=== PATIENT | male | born 1940 | race Caucasian/White ===

== ENCOUNTER 2017-08-06 13:11 | Inpatient (IN) | payer MEDICARE, OTHER ==
[2017-08-06] MEDS ORDERED: ASPIRIN 81 MG TABLET, CHEWABLE PO ONE (13:30)
--- NOTE | 2017-08-06 13:35 | ER Document Report ---
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 Pace Rate set at 130, then 115. No hx DVT or PE. Takes Eliquis BID. PCP:Jone who does not admit after 1200 on wednesday. TRAVEL OUTSIDE OF THE [place] IN LAST 30 DAYS: No - Related Data Allergies/Adverse Reactions: No Known Drug Allergies Allergy (Verified 08/06/17 13:25) Past Medical History - General Information source: Patient - Social History Smoking Status: Former Smoker Frequency of alcohol use: None Drug Abuse: None Lives with: Spouse/Significant other Family History: Reviewed & Not Pertinent - Past Medical History Cardiac Medical History: Reports: Hx Atrial Fibrillation, Hx Hypercholesterolemia, Hx Hypertension Past Surgical History: Reports: Hx Pacemaker - dual pacer set at 115 - Immunizations Hx Diphtheria, Pertussis, Tetanus Vaccination: No Review of Systems - Review of Systems Constitutional: No symptoms reported EENT: No symptoms reported Cardiovascular: See HPI Respiratory: See HPI Gastrointestinal: No symptoms reported Genitourinary: No symptoms reported Male Genitourinary: No symptoms reported Musculoskeletal: No symptoms reported Skin: No symptoms reported Hematologic/Lymphatic: No symptoms reported Neurological/Psychological: No symptoms reported Physical Exam - Vital signs Vitals: Temp Pulse Resp BP Pulse Ox 97.6 F 100 17 125/89 H 100 08/06/17 13:25 08/06/17 13:25 08/06/17 13:25 08/06/17 13:25 08/06/17 13:25 Interpretation: Normal - General General appearance: Appears well, Alert In distress: None - HEENT Head: Normocephalic, Atraumatic Eyes: Normal Conjunctiva: Normal Pupils: PERRL Neck: Supple. No: Lymphadenopathy - Respiratory Respiratory status: No respiratory distress Chest status: Nontender Breath sounds: Normal Chest palpation: Normal - Cardiovascular Rhythm: Tachycardia - ventricular paced above 100 Heart sounds: Normal auscultation Murmur: No - Abdominal Inspection: Normal Distension: No distension Bowel sounds: Normal Tenderness: Nontender. No: Tender Organomegaly: No organomegaly - Back Back: Normal, Nontender. No: CVA tenderness - Extremities General upper extremity: Normal inspection, Nontender, Normal color, Normal ROM , Normal temperature General lower extremity: Edema - bilateral below the knee, Normal color, Normal ROM, Normal temperature, Normal weight bearing. No: Romeo's sign - Neurological Neuro grossly intact: Yes Cognition: Normal Orientation: AAOx4 Jeanie Coma Scale Eye Opening: Spontaneous [place] Coma Scale Verbal: Oriented [place] Coma Scale Motor: Obeys Commands [place] Coma Scale Total: 15 Speech: Normal Motor strength normal: LUE, RUE, LLE, RLE Sensory: Normal - Psychological Associated symptoms: Normal affect, Normal mood - Skin Skin Temperature: Warm Skin Moisture: Dry Skin Color: Normal Course - Re-evaluation Re-evalutation: 08/06/17 17:42 1st troponin negative, d dime 0.54, consult dr. matos get the CTA, NTG took pain from 4/5 to 0. Will put on NTG topical 0.5 mg 08/06/17 17:44 08/06/17 18:44 Patient is still pain-free he has a little bit of a cough when he inhales which she has had for couple weeks. His CTA is negative for PE but shows small bilateral pleural effusions and a small pericardial effusion. Dr. elsie palma feels the patient can stay here for admission for chest pain which is the patient prefers to stay at [place] if he can. I will call the hospitalist. for admission, the night hosptialist has to do the admission per Dr. Gooden at 7: 15 pm 08/06/17 18:47 08/06/17 19:20 Dr. Harvey the night hospitalist will admit the patient to telemetry observation for chest pain. - Vital Signs Vital signs: Temp Pulse Resp BP Pulse Ox 97.6 F 100 25 H 108/76 95 08/06/17 13:25 08/06/17 13:25 08/06/17 17:32 08/06/17 17:32 08/06/17 17:32 - Laboratory Result Diagrams: 08/06/17 14:17 08/06/17 14:17 Laboratory results interpreted by me: 08/06/17 08/06/17 08/06/17 14:17 14:17 15:25 WBC 19.1 H RDW 14.5 H Seg Neuts % (Manual) 90 H Band Neutrophils % 1 L Lymphocytes % (Manual) 1 L Abs Neuts (Manual) 17.4 H Abs Lymphs (Manual) 0.4 L D-Dimer 0.54 H BUN 35 H Est GFR (Non-Af Amer) 56 L Glucose 132 H Direct Bilirubin 0.5 H Creatine Kinase 35 L Discharge - Discharge Clinical Impression: CHEST PAIN, small bilateral pleural effusion, mild pericardial effusion Condition: Stable Disposition: ADMITTED OBSERVATION Admitting Provider: Hospitalist Unit Admitted: Telemetry Referrals: JOSE SESAY MD [Primary Care Provider] - Follow up as needed
--- NOTE | 2017-08-06 14:11 | RADIOLOGY REPORT (SQ) ---
EXAM DESCRIPTION: CHEST SINGLE VIEW COMPLETED DATE/TIME: 08/06/2017 2:02 pm REASON FOR STUDY: cp COMPARISON: Two-view chest 10/13/2012 EXAM PARAMETERS: NUMBER OF VIEWS: One view. TECHNIQUE: Single frontal radiographic view of the chest acquired. RADIATION DOSE: NA LIMITATIONS: None. FINDINGS: LUNGS AND PLEURA: Trace left pleural effusion. Mild left basilar airspace disease atelectasis versus pneumonia. No right pleural effusion. No right-sided airspace disease. No right or left pneumothorax. MEDIASTINUM AND HILAR STRUCTURES: No masses. Contour normal. HEART AND VASCULAR STRUCTURES: Stable moderate cardiomegaly BONES: No acute findings. HARDWARE: Since prior films, patient has had a left-sided dual lead pacemaker placed OTHER: No other significant finding. IMPRESSION: Trace left pleural effusion with left basilar airspace disease atelectasis versus pneumo alan. Stable cardiomegaly. Dual lead pacemaker TECHNICAL DOCUMENTATION: JOB ID: [id number] [employer] [facility] [employer]- All Rights Reserved
[2017-08-06 14:28] LABS: HEMATOCRIT 46.8 % (37.9-51.0); HGB HCT DIFFERENCE 1.2; MEAN CORPUSCULAR HEMOGLOBIN 31.8 pg (27.0-33.4); MEAN CORPUSCULAR HGB CONC 34.3 g/dL (32.0-36.0); MEAN CORPUSCULAR VOLUME 93 fl (80-97); RED BLOOD COUNT 5.04 10^6/uL (4.35-5.55); RED CELL DISTRIBUTION WIDTH 14.5 % (11.5-14.0); WHITE BLOOD COUNT 19.1 10^3/uL (4.0-10.5)
[2017-08-06 14:58] LABS: ALANINE AMINOTRANSFERASE 59 U/L (21-72); ALKALINE PHOSPHATASE 117 U/L (38-126); ANION GAP 16 (5-19); ASPARTATE AMINO TRANSFERASE 53 U/L (17-59); BILIRUBIN,DIRECT 0.5 mg/dL (0.0-0.4); BILIRUBIN,TOTAL 1.1 mg/dL (0.2-1.3); BLOOD UREA NITROGEN 35 mg/dL (7-20); CALCIUM 9.3 mg/dL (8.4-10.2); CARBON DIOXIDE 27 mmol/L (22-30); CHLORIDE 98 mmol/L (98-107); CREATINE KINASE 35 U/L (55-170); CREATININE RESULT 1.25 mg/dL (0.52-1.25); GLUCOSE 132 mg/dL (75-110); POTASSIUM 4.2 mmol/L (3.6-5.0); SODIUM 141.2 mmol/L (137-145); TOTAL PROTEIN 6.8 g/dL (6.3-8.2)
[2017-08-06 15:07] LABS: BAND NEUTROPHILS % (MANUAL) 1 % (3-5); BASOPHILS % (MANUAL) 0 % (0-2); EOSINOPHILS % (MANUAL) 0 % (0-6); LYMPHOCYTES % (MANUAL) 1 % (13-45); POLYCHROMASIA SLIGHT; TOTAL CELLS COUNTED 100; TOXIC GRANULATION SLIGHT; TOXIC VACUOLATION PRESENT
[2017-08-06 15:10] LABS: CREATINE KINASE MB 1.24 ng/mL (<4.55)
[2017-08-06 15:12] LABS: TROPONIN I < 0.012 ng/mL
[2017-08-06] MEDS ORDERED: NITROGLYCERIN 0.4 MG/TAB 25 TAB/BOTTLE SL ONE (16:09)
[2017-08-06] MEDS ORDERED: NORMAL SALINE 1000 ML 500 ML IV ONE (16:57)
[2017-08-06] MEDS ORDERED: NITROGLYCERIN 0.4 MG/TAB 25 TAB/BOTTLE SL PRN (16:58)
[2017-08-06] MEDS ORDERED: NITROGLYCERIN 2% OINTMENT 1 GM PACKET TP ONE (17:43)
--- NOTE | 2017-08-06 18:11 | RADIOLOGY REPORT (SQ) ---
EXAM DESCRIPTION: CTA CHEST COMPLETED DATE/TIME: 08/06/2017 5:54 pm REASON FOR STUDY: chest pain sob COMPARISON: None. TECHNIQUE: CT scan of the chest performed using helical scanning technique with dynamic intravenous contrast injection. Images reviewed with lung, soft tissue and bone windows. Reconstructed coronal and sagittal MPR images reviewed. Additional 3 dimensional post-processing performed to develop Maximal Intensity Projection images (CO P). All images stored on PACS. All CT scanners at this facility use dose modulation, iterative reconstruction, and/or weight based d osing when appropriate to reduce radiation dose to as low as reasonably achievable (ALARA). [facility]: Dose Right [facility]: CareDose [facility]: Dose Right [facility]: Teradose 4D [facility]: InStitchu CONTRAST TYPE AND DOSE: contrast/concentration: Isovue 370.00 mg/ml; Total Contrast Delivered: 72.0 ml; Total Saline Delivered: 45.0 ml Contrast bolus optimized for the pulmonary arteries. Not diagnostic for the aorta. RENAL FUNCTION: Creatinine measures 1.25 RADIATION DOSE: Up-to-date CT equipment and radiation dose reduction techniques were employed. CTDIv ol: 16.5 - 17.8 mGy. DLP: 642 mGy-cm. . LIMITATIONS: None. FINDINGS: LUNGS AND PLEURA: Small bilateral pleural effusions with associated compressive atelectasi s. No consolidation or pneumothorax. AORTA AND GREAT VESSELS: No aneurysm. Contrast bolus not optimized for the aorta. HEART: Multichamber cardiomegaly. Trace pericardial effusion. Moderate to marked coronary artery chalino cifications. PULMONARY ARTERIES: No emboli visualized in the main pulmonary arteries or the segmental branches. HILAR AND MEDIASTINAL STRUCTURES: No identified masses or abnormal nodes. HARDWARE: None in the chest. UPPER ABDOMEN: No significant findings. Limited exam. THYROID AND OTHER SOFT TISSUES: No masses. No adenopathy. BONES: No acute or significant finding. 3D MIPS: Confirm above findings. OTHER: No other significant finding. IMPRESSION: NO PULMONARY EMBOLI. SMALL BILATERAL PLEURAL EFFUSIONS AND TRACE PERICARDIAL EFFUSION. CORONARY ARTERY DISEASE. COMMENT: Quality ID # [id number]: Final reports with documentation of one or more dose reduction techniques (e.g., Automated exposure control, adjustment of the mA and/or kV according to patient size, use of iterative reconstruction technique) TECHNICAL DOCUMENTATION: JOB ID: [id number]- All Rights Reserved
[2017-08-06] MEDS ORDERED: MAGNESIUM HYDROXIDE SUSP 30 ML UDCUP PO PRN (20:20)
[2017-08-06] MEDS ORDERED: ACETAMINOPHEN 325 MG TABLET PO PRN (20:20)
[2017-08-06 21:06] LABS: APPEARANCE,URINE CLEAR; BILIRUBIN,URINE NEGATIVE (NEGATIVE); GLUCOSE, URINE NEGATIVE (NEGATIVE); KETONES,URINE NEGATIVE (NEGATIVE); LEUKOCYTE ESTERASE,URINE MODERATE (NEGATIVE); NITRITE,URINE NEGATIVE (NEGATIVE); PROTEIN,URINE NEGATIVE (NEGATIVE); UROBILINOGEN,URINE NEGATIVE mg/dL (<2.0)
[2017-08-06 21:07] LABS: URINE SPECIFIC GRAVITY > 1.060
[2017-08-06] MEDS ORDERED: FUROSEMIDE INJ/PF 20 MG/2 ML SDV IV ONE (21:15)
--- NOTE | 2017-08-06 21:31 | PDOC H&P ---
History of Present Illness Admission Date/PCP: 08/06/17 19:43 JOSE SESAY, History of Present Illness: AUSTYN WEAVER is a 77 year old male with past medical history of atrial fibrillation status post pacemaker placement, hypertension, hyperlipidemia who presents with chest pain. Patient reports that he was constipated and when he began bearing down he began having chest pain. He described this as an aching substernal pain that did not radiate. He reports that it was improved with nitroglycerin. He denies any exacerbating factors. He denies any associated nausea, vomiting, or diaphoresis. Patient reports that over the last 3-4 days he has noticed a dry cough, shortness of breath, and increased dyspnea on exertion. He also reports significant fatigue. He does note that his lower extremities have been swollen and he does admit to drinking quite a bit of water. He does also report 2 cramps in the backs of his legs. Patient underwent a CTA in the emergency department which revealed atelectasis but no pulmonary embolus as well as marketed coronary artery calcification. Patient is noted also to have bilateral pleural effusions and a pericardial effusion. He is referred to the hospitalist service for chest pain. Patient is being admitted for congestive heart failure exacerbation. Past Medical History Cardiac Medical History: Reports: Atrial Fibrillation, Hyperlipidema, Hypertension Denies: Myocardial Infarction Pulmonary Medical History: Denies: Asthma, Tuberculosis Neurological Medical History: Denies: Seizures GI Medical History: Denies: Hepatitis, Hiatal Hernia Hematology: Denies: Anemia, Sickle Cell Disease Past Surgical History Past Surgical History: Reports: Pacemaker - dual pacer set at 115, Other - bladder surgery Social History Lives with: Spouse/Significant other Smoking Status: Former Smoker Frequency of Alcohol Use: Social Hx Recreational Drug Use: No Hx Prescription Drug Abuse: No - Advance Directive Resuscitation Status: Full Code Surrogate healthcare decision maker:: Joanne Weaver, Family History Family History: Malignancy, Other - Dementia Parental Family History Reviewed: Yes Children Family History Reviewed: Yes Sibling(s) Family History Reviewed.: Yes Medication/Allergy Home Medications: Apixaban [Eliquis 5 mg Tablet] 5 mg PO Q12 08/06/17 Flecainide Acetate 150 mg PO Q12 08/06/17 Lisinopril [Prinivil 10 mg Tablet] 10 mg PO DAILY 08/06/17 Metoprolol Succinate [Toprol Xl 50 mg Tab.sr] 75 mg PO DAILY 08/06/17 Allergies/Adverse Reactions: No Known Drug Allergies Allergy (Verified 08/06/17 13:25) Review of Systems Constitutional: PRESENT: fatigue. ABSENT: chills, fever(s), headache(s), weight gain, weight loss Eyes: ABSENT: visual disturbances Ears: ABSENT: hearing changes Cardiovascular: PRESENT: chest pain, dyspnea on exertion, edema. ABSENT: orthropnea, palpitations Respiratory: PRESENT: cough, dyspnea. ABSENT: hemoptysis, sputum Gastrointestinal: PRESENT: bloating, constipation. ABSENT: abdominal pain, diarrhea, hematemesis, hematochezia, melena, nausea, vomiting Genitourinary: ABSENT: dysuria, hematuria Musculoskeletal: ABSENT: joint swelling Integumentary: ABSENT: rash, wounds Neurological: ABSENT: abnormal gait, abnormal speech, confusion, dizziness, focal weakness, syncope Psychiatric: ABSENT: anxiety, depression, homidical ideation, suicidal ideation Endocrine: ABSENT: cold intolerance, heat intolerance, polydipsia, polyuria Hematologic/Lymphatic: ABSENT: easy bleeding, easy bruising Physical Exam Vital Signs: Temp Pulse Resp BP Pulse Ox 97.6 F 100 20 113/80 96 08/06/17 13:25 08/06/17 13:25 08/06/17 20:00 08/06/17 19:01 08/06/17 20:00 General appearance: PRESENT: no acute distress, well-developed, well-nourished Head exam: PRESENT: atraumatic, normocephalic Eye exam: PRESENT: conjunctiva pink, EOMI, periorbital swelling - Mild bilateral periorbital swelling, PERRLA. ABSENT: scleral icterus Ear exam: PRESENT: normal external ear exam Mouth exam: PRESENT: moist, tongue midline Neck exam: PRESENT: JVD. ABSENT: lymphadenopathy, thyromegaly, tracheal deviation Respiratory exam: PRESENT: rales, symmetrical, tachypnea. ABSENT: accessory muscle use, crackles, prolonged expiratory phas, retraction, rhonchi, unlabored , wheezes Cardiovascular exam: PRESENT: +S1, +S2, systolic murmur, other - Ventricularly paced. ABSENT: diastolic murmur, gallop, rubs Pulses: PRESENT: normal dorsalis pedis pul Vascular exam: PRESENT: normal capillary refill GI/Abdominal exam: PRESENT: distended - Mildly, hypoactive bowel sounds, normal bowel sounds, soft. ABSENT: guarding, mass, Pollack's sign, organolmegaly, rebound, rigid, tenderness Rectal exam: PRESENT: deferred Extremities exam: PRESENT: full ROM. ABSENT: calf tenderness, clubbing, pedal edema Neurological exam: PRESENT: alert, awake, oriented to person, oriented to place , oriented to time, oriented to situation, CN II-XII grossly intact. ABSENT: motor sensory deficit Psychiatric exam: PRESENT: appropriate affect, normal mood. ABSENT: homicidal ideation, suicidal ideation Skin exam: PRESENT: dry, intact, warm. ABSENT: cyanosis, rash Results Laboratory Results: 08/06/17 08/06/17 08/06/17 14:17 14:17 14:17 WBC 19.1 H Hgb 16.0 Hct 46.8 Plt Count 238 Seg Neuts % (Manual) 90 H D-Dimer Potassium 4.2 BUN 35 H Creatinine 1.25 Glucose 132 H Magnesium Direct Bilirubin 0.5 H AST 53 ALT 59 Alkaline Phosphatase 117 Creatine Kinase 35 L CK-MB (CK-2) 1.24 Troponin I < 0.012 Total Protein 6.8 Albumin 4.0 08/06/17 08/06/17 14:17 15:25 WBC Hgb Hct Plt Count Seg Neuts % (Manual) D-Dimer 0.54 H Potassium BUN Creatinine Glucose Magnesium 1.8 Direct Bilirubin AST ALT Alkaline Phosphatase Creatine Kinase CK-MB (CK-2) Troponin I Total Protein Albumin Impressions: Chest X-Ray 08/06/17 13:30 IMPRESSION: Trace left pleural effusion with left basilar airspace disease atelectasis versus pneumonia. Stable cardiomegaly. Dual lead pacemaker Chest/Abdomen CTA 08/06/17 16:57 IMPRESSION: NO PULMONARY EMBOLI. SMALL BILATERAL PLEURAL EFFUSIONS AND TRACE PERICARDIAL EFFUSION. CORONARY ARTERY DISEASE. Assessment & Plan - Diagnosis (1) Leukocytosis Qualifiers: Leukocytosis type: unspecified Qualified Code(s): D72.829 - Elevated white blood cell count, unspecified Is this a current diagnosis for this admission?: Yes Plan: Check UA, blood cultures, rapid influenza. (2) Acute congestive heart failure Qualifiers: Congestive heart failure type: unspecified congestive heart failure type Qualified Code(s): I50.9 - Heart failure, unspecified Is this a current diagnosis for this admission?: Yes Plan: Will obtain STAT ECHO. Suspect diastolic heart failure. Place patient on metoprolol, lisinopril, and lasix. Have considered restrictive pericarditis/tamponade in light of patient's apparent intravascular dehydration, but physical symptoms of volume overload. (3) Pericardial effusion Is this a current diagnosis for this admission?: Yes Plan: Concern for constrictive pericarditis or tamponade. Have obtained STAT echo and consulted cardiology. (4) A-fib Qualifiers: Atrial fibrillation type: chronic Qualified Code(s): I48.2 - Chronic atrial fibrillation Is this a current diagnosis for this admission?: Yes Plan: Patient had pacemaker placed recently for this. Continue flecanide, metoprolol, and eliquis. Monitor on telemetry for arrhythmia (5) HTN (hypertension) Qualifiers: Hypertension type: essential hypertension Qualified Code(s): I10 - Essential (primary) hypertension Is this a current diagnosis for this admission?: Yes (6) HLD (hyperlipidemia) Qualifiers: Hyperlipidemia type: unspecified Qualified Code(s): E78.5 - Hyperlipidemia , unspecified Is this a current diagnosis for this admission?: Yes Plan: Check FLP. Continue simvastatin and CoQ 10 CK normal (7) Constipation Qualifiers: Constipation type: unspecified constipation type Qualified Code(s): K59.00 - Constipation, unspecified Is this a current diagnosis for this admission?: Yes Plan: Give senna and colace and dulcolax (8) Coronary artery disease Qualifiers: Coronary Disease-Associated Artery/Lesion type: squaxin artery [place] vs. transplanted heart: squaxin heart Associated angina: with stable angina Qualified Code(s): I25.118 - Atherosclerotic heart disease of squaxin coronary artery with other forms of angina pectoris Is this a current diagnosis for this admission?: Yes Plan: Patient has marked coronary artery calcification on CT. - Time Time Spent with patient: Total time spent with patient including patient education, physical examination , discussion with consultants, and formulation of plan was 65 minutes. Time Spent: 50 to 70 Minutes Medications reviewed and adjusted accordingly: Yes Anticipated discharge: Home Within: Other - Upon improvement of symptomatology - Inpatient Certification Based on my medical assessment, after consideration of the patient's comorbidities, presenting symptoms, or acuity I expect that the services needed warrant INPATIENT care.: Yes I certify that my determination is in accordance with my understanding of Medicare's requirements for reasonable and necessary INPATIENT services [42 CFR 412.3e].: Yes Medical Necessity: Need For Continuous Telemetry Monitoring, Risk of Complication if Not Cared For in Hospital, Risk of Diagnosis Which Will Require Inpatient Eval/Care/Monitoring Post Hospital Care: D/C Track Coach Documentation
[2017-08-06] MEDS ORDERED: FLECAINIDE ACETATE 150 MG PO SCH (22:00)
[2017-08-06] MEDS ORDERED: METOPROLOL SUCCINATE 25 MG TAB.SR.24H PO SCH ×2 (22:00)
--- NOTE | 2017-08-06 22:40 | EKG REPORT ---
SEVERITY:- ABNORMAL ECG - VENTRICULAR-PACED RHYTHM : Confirmed by: Eloy Garza 06-Aug-2017 22:40:30
[2017-08-06] MEDS ORDERED: BISACODYL 5 MG TABEC PO ONE (22:43)
[2017-08-06] MEDS: LISINOPRIL 5 MG TABLET PO SCH (22:46)
[2017-08-06] MEDS: SENNOSIDES/DOCUSATE 8.6-50 MG 1 EACH TABLET PO SCH (22:46)
[2017-08-06] MEDS: METOPROLOL SUCCINATE 50 MG TAB.SR.24H PO SCH (22:47)
[2017-08-06 22:51] LABS: CREATINE KINASE MB 0.95 ng/mL (<4.55); TROPONIN I 0.013 ng/mL
[2017-08-06] MEDS: NITROGLYCERIN 2% OINTMENT 1 GM PACKET TP SCH (23:25)
[2017-08-07 03:55] LABS: ABSOLUTE LYMPHOCYTES (AUTO) 1.2 10^3/uL (0.5-4.7); ABSOLUTE MONOCYTES (AUTO) 2.2 10^3/uL (0.1-1.4); ABSOLUTE NEUT (AUTO) 10.5 10^3/uL (1.7-8.2); BASOPHILS % (AUTO) 0.3 % (0-2); EOSINOPHILS % (AUTO) 0.1 % (0-6); HEMATOCRIT 40.8 % (37.9-51.0); HGB HCT DIFFERENCE 0.9; LYMPHOCYTES % (AUTO) 8.7 % (13-45); MEAN CORPUSCULAR HEMOGLOBIN 31.8 pg (27.0-33.4); MEAN CORPUSCULAR VOLUME 94 fl (80-97); MONOCYTES % (AUTO) 15.7 % (3-13); RED BLOOD COUNT 4.37 10^6/uL (4.35-5.55); RED CELL DISTRIBUTION WIDTH 14.4 % (11.5-14.0); SEGMENTED NEUTROPHILS % (AUTO) 75.2 % (42-78); WHITE BLOOD COUNT 13.9 10^3/uL (4.0-10.5)
[2017-08-07 04:03] LABS: ANION GAP 10 (5-19); BLOOD UREA NITROGEN 33 mg/dL (7-20); CALCIUM 9.1 mg/dL (8.4-10.2); CARBON DIOXIDE 30 mmol/L (22-30); CHLORIDE 98 mmol/L (98-107); CHOLESTEROL 76.43 mg/dL (0-200); CREATININE RESULT 1.22 mg/dL (0.52-1.25); Direct HDL 33 mg/dL (>40); GLUCOSE 118 mg/dL (75-110); SODIUM 138.4 mmol/L (137-145); TRIGLYCERIDES 67 mg/dL (<150)
[2017-08-07 04:12] LABS: HEMOGLOBIN 13.9 g/dL (13.5-17.0)
[2017-08-07 04:20] LABS: DIRECT LDL 39 mg/dL (<100)
[2017-08-07 04:34] LABS: CREATINE KINASE MB 0.66 ng/mL (<4.55); TROPONIN I 0.013 ng/mL
[2017-08-07] MEDS: NITROGLYCERIN 2% OINTMENT 1 GM PACKET TP SCH ×4 (06:52→23:52)
--- NOTE | 2017-08-07 08:59 | XCELERA REPORT ---
[address] [address] Transthoracic Echocardiogram Report Name: AUSTYN WEAVER Age: 77 yrs Gender: Male : 1940 Patient Status: Inpatient Patient Location: [address] [place] [address] Study Date: 08/06/2017 10:58 PM Height: 69 in Weight: 180 lb BSA: 2.0 m2 Procedure: A complete two-dimensional transthoracic echocardiogram was performed (2D, M-mode, spectral and color flow Doppler). The study was technically difficult with many images being suboptimal in quality. Reason For Study: pericardial effusion, acute chf Ordering Physician: CLINTON ODELL Performed By: Lizz Roberson Interpretation Summary LV EF is 35% Left ventricular systolic function is moderate to severely reduced. There is mild concentric left ventricular hypertrophy. The left ventricle is grossly normal size. Doppler measurements suggest pseudonormalized left ventricular relaxation, which is associated with grade II/IV or mild to moderate diastolic dysfunction There is apical wall akinesis There is mid to distal septal wall akinesis The right ventricular systolic function is mild to moderately reduced. The left atrium is moderately dilated. The right atrium is normal in size There is a mild amount of mitral regurgitation There is no mitral valve stenosis. No aortic regurgitation is present. There is no aortic valve stenosis There is a trace to mild amount of tricuspid regurgitation There is mild pulmonary hypertension by echo Right ventricular systolic pressure is estimated to be elevated at 30- 40mmHg. The aortic root is not well visualized. The inferior vena cava appeared normal and decreased < 50% with respiration (RAP 10-15 mmHg) Minimal pericardial effusion. MMode/2D Measurements & Calculations RVDd: 3.1 cm LVIDd: 5.0 cm FS: 11.2 % Ao root diam: 3.4 cm IVSd: 1.1 cm LVIDs: 4.4 cm EDV(Teich): 118.6 ml LVPWd: 1.1 cm ESV(Teich): 89.8 ml Ao root area: 8.9 cm2 EF(Teich): 24.2 % LA dimension: 3.9 cm Doppler Measurements & Calculations MV E max zaira: MV P1/2t max zaira: Ao V2 max: LV V1 max P.5 cm/sec 57.9 cm/sec 66.4 cm/sec 1.2 mmHg MV A max zaira: MV P1/2t: 61.9 msec Ao max PG: LV V1 max: 38.1 cm/sec 1.8 mmHg 55.9 cm/sec MV E/A: 1.6 MVA(P1/2t): 3.6 cm2 MV dec slope: 273.9 cm/sec2 MV dec time: 0.19 sec PA V2 max: TR max zaira: 39.5 cm/sec 256.5 cm/sec PA max PG: TR max P.3 mmHg 0.62 mmHg Left Ventricle The left ventricle is grossly normal size. There is mild concentric left ventricular hypertrophy. Left ventricular systolic function is moderate to severely reduced. LV EF is 35%. Doppler measurements suggest pseudonormalized left ventricular relaxation, which is associated with grade II/IV or mild to moderate diastolic dysfunction. There is apical wall akinesis. There is mid to distal septal wall akinesis. Right Ventricle The right ventricle is grossly normal size. There is normal right ventricular wall thickness. The right ventricular systolic function is mild to moderately reduced. Atria The right atrium is normal in size. The left atrium is moderately dilated. Interarterial septum not well visualized and not well dopplered. Cannot comment on ASD/PFO presence. Mitral Valve The mitral valve leaflets are sclerotic and show some degree of functional abnormality. There is no mitral valve stenosis. There is a mild amount of mitral regurgitation. Aortic Valve The aortic valve is not well visualized secondary to technical limitations. There is no aortic valve stenosis. No aortic regurgitation is present. Tricuspid Valve The tricuspid valve is not well visualized secondary to technical limitations. There is no tricuspid stenosis. There is a trace to mild amount of tricuspid regurgitation. There is mild pulmonary hypertension by echo. Right ventricular systolic pressure is estimated to be elevated at 30-40mmHg. Pulmonic Valve The pulmonic valve is not well visualized. Great Vessels The aortic root is not well visualized. The inferior vena cava appeared normal and decreased < 50% with respiration (RAP 10-15 mmHg). Effusions Minimal pericardial effusion. : CLINTON ODELL > Eloy Garza
[2017-08-07] MEDS ORDERED: BESIFLOXACIN HCL 0.6% OPH SUSP 5 ML BOTTLE OD SCH (10:00)
[2017-08-07] MEDS ORDERED: (PENDING PHARMACY ID) (Nepafenac [Ilevro] 1 DROP) OD SCH (10:00)
[2017-08-07] MEDS ORDERED: FUROSEMIDE INJ/PF 20 MG/2 ML SDV IV SCH (10:00)
[2017-08-07] MEDS ORDERED: (PENDING PHARMACY ID) (Difluprednate [Durezol] 1 DROP) OD SCH (10:00)
[2017-08-07] MEDS ORDERED: FLECAINIDE ACETATE 150 MG PO SCH (10:00)
[2017-08-07] MEDS ORDERED: FLECAINIDE ACETATE 100 MG TABLET PO SCH (10:00)
[2017-08-07] MEDS: LISINOPRIL 5 MG TABLET PO SCH ×2 (10:01→21:16)
[2017-08-07] MEDS: MAGNESIUM OXIDE 400 MG TABLET PO SCH ×2 (10:02→17:45)
[2017-08-07] MEDS: APIXABAN 5 MG TABLET PO SCH ×2 (10:02→17:45)
[2017-08-07] MEDS: METOPROLOL SUCCINATE 50 MG TAB.SR.24H PO SCH ×2 (10:02→21:16)
[2017-08-07] MEDS: DOCUSATE SODIUM 100 MG CAPSULE PO SCH ×2 (10:02→17:45)
[2017-08-07] MEDS: ASPIRIN 325 MG TABLET, ENT COATED PO SCH (10:02)
[2017-08-07 10:47] LABS: CREATINE KINASE MB 0.72 ng/mL (<4.55)
[2017-08-07 10:53] LABS: TROPONIN I < 0.012 ng/mL
--- NOTE | 2017-08-07 13:33 | PDOC PROGRESS REPORT ---
Subjective Progress Note for:: 08/07/17 Subjective:: Day 1 of hospitalization. Follow-up visit for atypical chest pain and acute systolic heart failure next 77-year-old male with history of atrial fibrillation status post permanent pacemaker placement, hypertension, dyslipidemia who presented to the hospital with chest pain. He also admitted to having lower extremity edema, and increased shortness of breath on exertion. CT scan on admission did not reveal any PE. Echocardiogram shows a reduced LVEF of 35%, and apical akinesis. Serial cardiac enzymes have been negative. Patient is receiving diuresis with IV Lasix Overnight events noted. Patient reports feeling better. He states his chest pain has resolved. He has mild shortness of breath with activity. He denies nausea, vomiting, diarrhea. He still has a mildly productive cough. He is afebrile Physical Exam Vital Signs: Temp Pulse Resp BP Pulse Ox 97.4 F 81 20 126/60 H 98 08/07/17 11:26 08/07/17 11:26 08/07/17 11:26 08/07/17 11:26 08/07/17 11:26 Intake & Output 08/06/17 08/07/17 08/08/17 06:59 06:59 06:59 Output Total 600 Balance -600 Weight 82 kg General appearance: PRESENT: no acute distress, cooperative, well-developed Head exam: PRESENT: atraumatic, normocephalic Respiratory exam: PRESENT: decreased breath sounds, unlabored, other - Faint bibasilar rales. Left upper anterior chest wall PPM noted GI/Abdominal exam: PRESENT: normal bowel sounds, rigid. ABSENT: ascites, diminished bowel sounds, distended, firm, guarding, hernia, hyperactive bowel sounds, hypoactive bowel sounds, mass, Pollack's sign, organolmegaly, rebound, soft, tenderness, other Extremities exam: PRESENT: full ROM, +1 edema Neurological exam: PRESENT: alert, awake, oriented to person, oriented to place , oriented to time, oriented to situation, reflexes normal, CN II-XII grossly intact Skin exam: PRESENT: intact, normal color, warm Results Laboratory Results: 08/07/17 03:32 08/07/17 03:32 08/06/17 08/06/17 08/07/17 20:50 21:34 03:32 WBC 13.9 H RBC 4.37 Hgb 13.9 D Hct 40.8 MCV 94 MCH 31.8 MCHC 34.0 RDW 14.4 H Plt Count 183 Seg Neutrophils % 75.2 Lymphocytes % 8.7 L Monocytes % 15.7 H Eosinophils % 0.1 Basophils % 0.3 Absolute Neutrophils 10.5 H Absolute Lymphocytes 1.2 Absolute Monocytes 2.2 H Absolute Eosinophils 0.0 Absolute Basophils 0.0 Sodium Potassium Chloride Carbon Dioxide Anion Gap BUN Creatinine Est GFR ( Amer) Est GFR (Non-Af Amer) Glucose Calcium Triglycerides Cholesterol LDL Cholesterol Direct VLDL Cholesterol HDL Cholesterol TSH 1.97 Urine Color YELLOW Urine Appearance CLEAR Urine pH 5.0 Ur Specific [place] > 1.060 Urine Protein NEGATIVE Urine Glucose (UA) NEGATIVE Urine Ketones NEGATIVE Urine Blood NEGATIVE Urine Nitrite NEGATIVE Ur Leukocyte Esterase MODERATE H Urine WBC (Auto) 11 Urine RBC (Auto) 4 08/07/17 03:32 WBC RBC Hgb Hct MCV MCH MCHC RDW Plt Count Seg Neutrophils % Lymphocytes % Monocytes % Eosinophils % Basophils % Absolute Neutrophils Absolute Lymphocytes Absolute Monocytes Absolute Eosinophils Absolute Basophils Sodium 138.4 Potassium 4.0 Chloride 98 Carbon Dioxide 30 Anion Gap 10 BUN 33 H Creatinine 1.22 Est GFR ( Amer) > 60 Est GFR (Non-Af Amer) 57 L Glucose 118 H Calcium 9.1 Triglycerides 67 Cholesterol 76.43 LDL Cholesterol Direct 39 VLDL Cholesterol 13.0 HDL Cholesterol 33 L TSH Urine Color Urine Appearance Urine pH Ur Specific [place] Urine Protein Urine Glucose (UA) Urine Ketones Urine Blood Urine Nitrite Ur Leukocyte Esterase Urine WBC (Auto) Urine RBC (Auto) 08/06/17 08/06/17 08/06/17 21:34 21:34 21:34 Creatine Kinase < 20 L CK-MB (CK-2) 0.95 Troponin I 0.013 NT-Pro-B Natriuret Pep [id number] H 08/07/17 08/07/17 08/07/17 03:32 03:32 09:52 Creatine Kinase < 20 L < 20 L CK-MB (CK-2) 0.66 Troponin I 0.013 NT-Pro-B Natriuret Pep 08/07/17 09:52 Creatine Kinase CK-MB (CK-2) 0.72 Troponin I < 0.012 NT-Pro-B Natriuret Pep Impressions: Chest X-Ray 08/06/17 13:30 IMPRESSION: Trace left pleural effusion with left basilar airspace disease atelectasis versus pneumonia. Stable cardiomegaly. Dual lead pacemaker Chest/Abdomen CTA 08/06/17 16:57 IMPRESSION: NO PULMONARY EMBOLI. SMALL BILATERAL PLEURAL EFFUSIONS AND TRACE PERICARDIAL EFFUSION. CORONARY ARTERY DISEASE. Status: Image reviewed by me Assessment & Plan - Diagnosis (1) Acute congestive heart failure Qualifiers: Congestive heart failure type: systolic Qualified Code(s): I50.21 - Acute systolic (congestive) heart failure Is this a current diagnosis for this admission?: Yes Plan: Clinically volume overloaded with lower extremity edema. NT-Pro-BNP 54765. Echocardiogram with LVEF 35%. Great to/fall diastolic dysfunction noted apical wall akinesis. Mild pulmonary hypertension with RVSP 30-[address] with no PE. Small bilateral pleural effusion and trace pericardial effusion noted. Continue Lasix, metoprolol, lisinopril. Patient will require an ischemic cardiac workup. Cardiology consulted (2) Chest pain Qualifiers: Chest pain type: precordial pain Qualified Code(s): R07.2 - Precordial pain Is this a current diagnosis for this admission?: Yes Plan: Chest pain atypical chest pain, in a patient with CAD per CT scan, resolved. EKG with ventricular paced rhythm. Serial TnI wnl. Maintain on aspirin, sublingual nitroglycerin as needed. Patient will require further cardiac risk stratification. (3) A-fib Qualifiers: Atrial fibrillation type: chronic Qualified Code(s): I48.2 - Chronic atrial fibrillation Is this a current diagnosis for this admission?: Yes Plan: Permanent atrial fibrillation status post ablation, status post PPM. Currently on flecainide and metoprolol. Continue anticoagulation with home apixaban. (4) HLD (hyperlipidemia) Qualifiers: Hyperlipidemia type: unspecified Qualified Code(s): E78.5 - Hyperlipidemia , unspecified Is this a current diagnosis for this admission?: Yes Plan: Chronic, stable. Continue home Simvastatin (5) HTN (hypertension) Qualifiers: Hypertension type: essential hypertension Qualified Code(s): I10 - Essential (primary) hypertension Is this a current diagnosis for this admission?: Yes Plan: Hypertension, essential, blood pressure at goal on home metoprolol (6) COLBY (acute kidney injury) Is this a current diagnosis for this admission?: Yes Plan: Cr 1.2 [1.3]. Monitor closely while on duiresis. (7) Leukocytosis Qualifiers: Leukocytosis type: unspecified Qualified Code(s): D72.829 - Elevated white blood cell count, unspecified Is this a current diagnosis for this admission?: Yes Plan: Leukocytosis, WBC 13.9 [19.1]. Patient is afebrile. Follow urinalysis. Avoid antibiotics at this time (8) DVT prophylaxis Is this a current diagnosis for this admission?: Yes Plan: Patient on apixaban - Time Time Spent with patient: 35 or more minutes Medications reviewed and adjusted accordingly: Yes Anticipated discharge: Home - Inpatient Certification Medical Necessity: Need For Continuous Telemetry Monitoring, Risk of Complication if Not Cared For in Hospital - Plan Summary Plan Summary: Continue diuresis with IV Lasix. Plan to discharge home to follow with cardiology for outpatient ischemic workup
[2017-08-07] MEDS ORDERED: DIGOXIN 0.25 MG TABLET PO ONE (16:00)
--- NOTE | 2017-08-07 19:44 | PDOC CONSULTATION ---
Consultation Consult Date: 08/07/17 Attending physician:: CLINTON ODELL Consult reason:: CHF History of Present Illness Admission Date/PCP: 08/06/17 20:20 JOSE SESAY, Patient complains of: Shortness of breath History of Present Illness: AUSTYN WEAVER is a 77 year old male with past medical history of atrial fibrillation status post pacemaker placement, hypertension, hyperlipidemia who presents with chest pain. Patient reports that he was constipated and when he began bearing down he began having chest pain. He described this as an aching substernal pain that did not radiate. He reports that it was improved with nitroglycerin. He denies any exacerbating factors. He denies any associated nausea, vomiting, or diaphoresis. Patient reports that over the last 3-4 days he has noticed a dry cough, shortness of breath, and increased dyspnea on exertion. He also reports significant fatigue. He does note that his lower extremities have been swollen and he does admit to drinking quite a bit of water. He does also report 2 cramps in the backs of his legs. Patient underwent a CTA in the emergency department which revealed atelectasis but no pulmonary embolus as well as marketed coronary artery calcification. Patient is noted also to have bilateral pleural effusions and a pericardial effusion. He is referred to the hospitalist service for chest pain. Patient is being admitted for congestive heart failure exacerbation. This history was reviewed and confirmed. Patient denied any recurrence of chest pain. He feels better since admission. He claims that he was scheduled to have a 2D echo at [facility] in near future. I did discuss echo results with the patient. Discussed that flecainide is contraindicated. Past Medical History Cardiac Medical History: Reports: Atrial Fibrillation, Hyperlipidema, Hypertension Denies: Myocardial Infarction Pulmonary Medical History: Denies: Asthma, Tuberculosis Neurological Medical History: Denies: Seizures GI Medical History: Denies: Hepatitis, Hiatal Hernia Psychiatric Medical History: Denies: Depression Hematology: Denies: Anemia, Sickle Cell Disease Past Surgical History Past Surgical History: Reports: Pacemaker - dual pacer set at 115, Other - bladder surgery Social History Lives with: Spouse/Significant other Smoking Status: Former Smoker Last Time Smoked: patient denied history of smoking when asked Frequency of Alcohol Use: Social Hx Recreational Drug Use: No Drugs: None Hx Prescription Drug Abuse: No - Advance Directive Resuscitation Status: Full Code Surrogate healthcare decision maker:: Patient's is the surrogate decision-maker Family History Family History: Malignancy, Other - Dementia Parental Family History Reviewed: Yes Children Family History Reviewed: Yes Sibling(s) Family History Reviewed.: Yes - Negative for premature coronary artery disease or sudden cardiac in the family amongst first degree relatives. Medication/Allergy Home Medications: Apixaban [Eliquis 5 mg Tablet] 5 mg PO Q12 08/06/17 Flecainide Acetate 150 mg PO Q12 08/06/17 Lisinopril [Prinivil 10 mg Tablet] 10 mg PO DAILY 08/06/17 Metoprolol Succinate [Toprol Xl 50 mg Tab.sr] 75 mg PO DAILY 08/06/17 Allergies/Adverse Reactions: No Known Drug Allergies Allergy (Verified 08/06/17 13:25) Physical Exam Vital Signs: Temp Pulse Resp BP Pulse Ox 97.4 F 81 20 126/60 H 98 08/07/17 11:26 08/07/17 11:26 08/07/17 11:26 08/07/17 11:26 08/07/17 11:26 Intake & Output 08/06/17 08/07/17 08/08/17 06:59 06:59 06:59 Output Total 600 Balance -600 Weight 82 kg Exam: GENERAL: well-nourished and in no acute distress. Alert and oriented x3 HEAD: Atraumatic, normocephalic. EYES: Pupils equal round and reactive to light, extraocular movements intact, sclera anicteric, conjunctiva are normal. ENT: TMs normal, nares patent, oropharynx clear without exudates. Moist mucous membranes. No oral ulcerations or bleeding gums noted NECK: supple without lymphadenopathy. Trachea is central. No cervical or axillary lymphadenopathy noted. Carotids are 2+, JVD WNL LUNGS: Respiration seems nonlabored, no significant accessory muscle action noted. Bibasilar fine crackles noted both bases and dullness noted both bases CHEST: Palpation of the chest wall shows no significant chest wall tenderness. No other significant abnormalities noted. Pacemaker noted on the left side. Incision is clear. HEART: [place] GALLEY COOK, No PSH, 1/6 NANO aortic area, 1/6 marquez systolic murmur mitral area, no rubs, S3 gallops. ABDOMEN: Soft, no significant tenderness appreciated, normoactive bowel sounds. No guarding, no rebound. No rigidity noted . No masses appreciated. EXTREMITIES: Pedal pulses are 1-2+, no calf tenderness noted. No clubbing or cyanosis.trace to 1+ pedal edema noted NEUROLOGICAL: Focused neurological exam showed no significant neurologic deficit. Normal speech, no focal weakness appreciated. PSYCH: Normal mood, normal affect. Judgment and insight within normal limits. SKIN: No significant ecchymosis, rash, ulcerations or signs of pruritus noted. MUSCULOSKELETAL EXAM: No significant joint swelling noted. Results Laboratory Results: 08/07/17 03:32 08/07/17 03:32 08/06/17 08/06/17 08/07/17 20:50 21:34 03:32 WBC 13.9 H RBC 4.37 Hgb 13.9 D Hct 40.8 MCV 94 MCH 31.8 MCHC 34.0 RDW 14.4 H Plt Count 183 Seg Neutrophils % 75.2 Lymphocytes % 8.7 L Monocytes % 15.7 H Eosinophils % 0.1 Basophils % 0.3 Absolute Neutrophils 10.5 H Absolute Lymphocytes 1.2 Absolute Monocytes 2.2 H Absolute Eosinophils 0.0 Absolute Basophils 0.0 Sodium Potassium Chloride Carbon Dioxide Anion Gap BUN Creatinine Est GFR ( Amer) Est GFR (Non-Af Amer) Glucose Calcium Triglycerides Cholesterol LDL Cholesterol Direct VLDL Cholesterol HDL Cholesterol TSH 1.97 Urine Color YELLOW Urine Appearance CLEAR Urine pH 5.0 Ur Specific [place] > 1.060 Urine Protein NEGATIVE Urine Glucose (UA) NEGATIVE Urine Ketones NEGATIVE Urine Blood NEGATIVE Urine Nitrite NEGATIVE Ur Leukocyte Esterase MODERATE H Urine WBC (Auto) 11 Urine RBC (Auto) 4 08/07/17 03:32 WBC RBC Hgb Hct MCV MCH MCHC RDW Plt Count Seg Neutrophils % Lymphocytes % Monocytes % Eosinophils % Basophils % Absolute Neutrophils Absolute Lymphocytes Absolute Monocytes Absolute Eosinophils Absolute Basophils Sodium 138.4 Potassium 4.0 Chloride 98 Carbon Dioxide 30 Anion Gap 10 BUN 33 H Creatinine 1.22 Est GFR ( Amer) > 60 Est GFR (Non-Af Amer) 57 L Glucose 118 H Calcium 9.1 Triglycerides 67 Cholesterol 76.43 LDL Cholesterol Direct 39 VLDL Cholesterol 13.0 HDL Cholesterol 33 L TSH Urine Color Urine Appearance Urine pH Ur Specific [place] Urine Protein Urine Glucose (UA) Urine Ketones Urine Blood Urine Nitrite Ur Leukocyte Esterase Urine WBC (Auto) Urine RBC (Auto) 08/06/17 08/06/17 08/06/17 21:34 21:34 21:34 Creatine Kinase < 20 L CK-MB (CK-2) 0.95 Troponin I 0.013 NT-Pro-B Natriuret Pep [id number] H 08/07/17 08/07/17 08/07/17 03:32 03:32 09:52 Creatine Kinase < 20 L < 20 L CK-MB (CK-2) 0.66 Troponin I 0.013 NT-Pro-B Natriuret Pep 08/07/17 09:52 Creatine Kinase CK-MB (CK-2) 0.72 Troponin I < 0.012 NT-Pro-B Natriuret Pep EKG Comments: Sinus tachycardia versus PAT with ventricular paced beats. Impressions: Chest X-Ray 08/06/17 13:30 IMPRESSION: Trace left pleural effusion with left basilar airspace disease atelectasis versus pneumonia. Stable cardiomegaly. Dual lead pacemaker Chest/Abdomen CTA 08/06/17 16:57 IMPRESSION: NO PULMONARY EMBOLI. SMALL BILATERAL PLEURAL EFFUSIONS AND TRACE PERICARDIAL EFFUSION. CORONARY ARTERY DISEASE. Assessment & Plan - Diagnosis (1) Acute congestive heart failure Qualifiers: Congestive heart failure type: systolic Qualified Code(s): I50.21 - Acute systolic (congestive) heart failure Is this a current diagnosis for this admission?: Yes (2) Chest pain Qualifiers: Chest pain type: precordial pain Qualified Code(s): R07.2 - Precordial pain Is this a current diagnosis for this admission?: Yes (3) Coronary artery disease Qualifiers: Coronary Disease-Associated Artery/Lesion type: [place] artery [place] vs. transplanted heart: [place] heart Associated angina: with stable angina Qualified Code(s): I25.118 - Atherosclerotic heart disease of [place] coronary artery with other forms of angina pectoris Is this a current diagnosis for this admission?: Yes (4) HLD (hyperlipidemia) Qualifiers: Hyperlipidemia type: unspecified Qualified Code(s): E78.5 - Hyperlipidemia , unspecified Is this a current diagnosis for this admission?: Yes (5) HTN (hypertension) Qualifiers: Hypertension type: essential hypertension Qualified Code(s): I10 - Essential (primary) hypertension Is this a current diagnosis for this admission?: Yes (6) Pericardial effusion Is this a current diagnosis for this admission?: Yes - Notes Notes: Patient seems to be managed adequately. Today I stopped flecainide. Have added digoxin. Will recommend entresto and beta-aixa. Patient will benefit from a repeat echocardiogram in the near future. This should be timed about 6- 12 weeks. Will consider a nuclear stress test on Wednesday if patient continues to show progress.Acute congestive heart failure: Systolic based on echocardiogram report. Continue with IV Lasix, will optimize therapy with starting entresto and digoxin. As noted above have stopped flecainide. Chest pain: Atypical but to be evaluated by a nuclear stress test prior to discharge. Coronary artery disease: Patient noted to have coronary calcification. Recommend aspirin, statins, beta-aixa, JIMMIE inhibitor/ARB therapy. Hypertension: Blood pressure goal should be 135/85 or less in patients with CHF and CAD. Pericardial effusion: It was noted to be a small by echocardiogram. No evidence of tamponade. Mitral regurgitation: Mitral regurgitation was noted. Recommend vasodilators. - Time Time Spent: 50 to 70 Minutes - CODE STATUS was discussed, patient remains full code. Surrogate decision-maker patient spouse. Multiple medical problems were addressed. More than 50% of the time spent coordinating care, discussing management plans with involved caregivers. Management plans discussed with involved personnels. Medical decision making was of moderate to high complexity , patient's has multiple comorbidities. Medications reviewed and adjusted accordingly: Yes
[2017-08-07] MEDS: SENNOSIDES/DOCUSATE 8.6-50 MG 1 EACH TABLET PO SCH (21:04)
[2017-08-07] MEDS: FUROSEMIDE INJ/PF 40 MG/4 ML SDV IV SCH (21:16)
[2017-08-07] MEDS: SACUBITRIL/VALSARTAN 24 MG/26 MG TABLET PO SCH (21:16)
[2017-08-07] MEDS ORDERED: FUROSEMIDE INJ/PF 100 MG/10 ML SDV IV SCH (22:00)
[2017-08-08] MEDS: NITROGLYCERIN 2% OINTMENT 1 GM PACKET TP SCH ×2 (05:48→12:00)
[2017-08-08 06:53] LABS: HEMATOCRIT 43.8 % (37.9-51.0); HEMOGLOBIN 15.2 g/dL (13.5-17.0); HGB HCT DIFFERENCE 1.8; MEAN CORPUSCULAR HGB CONC 34.7 g/dL (32.0-36.0); MEAN CORPUSCULAR VOLUME 92 fl (80-97); RED BLOOD COUNT 4.75 10^6/uL (4.35-5.55); RED CELL DISTRIBUTION WIDTH 14.4 % (11.5-14.0); WHITE BLOOD COUNT 12.1 10^3/uL (4.0-10.5)
[2017-08-08 07:19] LABS: ANION GAP 15 (5-19); BLOOD UREA NITROGEN 30 mg/dL (7-20); CARBON DIOXIDE 29 mmol/L (22-30); CHLORIDE 96 mmol/L (98-107); CREATININE RESULT 0.97 mg/dL (0.52-1.25); GLUCOSE 100 mg/dL (75-110); POTASSIUM 3.4 mmol/L (3.6-5.0); SODIUM 139.7 mmol/L (137-145)
[2017-08-08] MEDS: FUROSEMIDE INJ/PF 40 MG/4 ML SDV IV SCH (09:17)
[2017-08-08] MEDS: DOCUSATE SODIUM 100 MG CAPSULE PO SCH (09:18)
[2017-08-08] MEDS: APIXABAN 5 MG TABLET PO SCH (09:18)
[2017-08-08] MEDS: MAGNESIUM OXIDE 400 MG TABLET PO SCH (09:19)
[2017-08-08] MEDS: SACUBITRIL/VALSARTAN 24 MG/26 MG TABLET PO SCH (09:19)
[2017-08-08] MEDS: LISINOPRIL 5 MG TABLET PO SCH (09:19)
[2017-08-08] MEDS: METOPROLOL SUCCINATE 50 MG TAB.SR.24H PO SCH (09:20)
[2017-08-08] MEDS: ASPIRIN 325 MG TABLET, ENT COATED PO SCH (09:20)
[2017-08-08] MEDS ORDERED: DIGOXIN 0.125 MG TABLET PO SCH (10:00)
[2017-08-08] MEDS ORDERED: AMINOPHYLLINE INJ/PF 250 MG/10 ML SDV IV ONE (12:24)
[2017-08-08] MEDS ORDERED: REGADENOSON INJ 0.4 MG/5 ML DISP.SYRIN IV ONE (12:24)
--- NOTE | 2017-08-08 12:57 | PDOC PROGRESS REPORT ---
Subjective Progress Note for:: 08/08/17 Subjective:: Day 1 of hospitalization. Follow-up visit for atypical chest pain and acute systolic heart failure 77-year-old male with history of atrial fibrillation status post permanent pacemaker placement, hypertension, dyslipidemia who presented to the hospital with chest pain. He also admitted to having lower extremity edema, and increased shortness of breath on exertion. CT scan on admission did not reveal any PE. Echocardiogram shows a reduced LVEF of 35%, and apical akinesis. Serial cardiac enzymes have been negative. Patient is receiving diuresis with IV Lasix. He is scheduled for stress MPI today with Dr. Garza, as part of his ischemic workup Overnight events noted. Patient reports feeling better. He denies any chest pain, shortness of breath. He denies nausea, vomiting, diarrhea. He still has a mildly productive cough. He is afebrile Physical Exam Vital Signs: Temp Pulse Resp BP Pulse Ox 98.2 F 95 18 104/75 95 08/08/17 11:44 08/08/17 11:44 08/08/17 11:44 08/08/17 11:44 08/08/17 11:44 Intake & Output 08/07/17 08/08/17 08/09/17 06:59 06:59 06:59 Intake Total 1222 Output Total 600 650 Balance -600 572 Weight 82 kg 82 kg General appearance: PRESENT: no acute distress, cooperative, well-developed Head exam: PRESENT: atraumatic, normocephalic Eye exam: PRESENT: conjunctiva pink, EOMI Respiratory exam: PRESENT: unlabored, other - Mild bibasilar Rales. Permanent pacemaker noted in the left anterior chest wall Cardiovascular exam: PRESENT: RRR, +S1, +S2. ABSENT: bradycardia, clicks, diastolic murmur, gallop, irregular rhythm, rubs, systolic murmur, tachycardia, other GI/Abdominal exam: PRESENT: normal bowel sounds, soft. ABSENT: ascites, diminished bowel sounds, distended, firm, guarding, hernia, hyperactive bowel sounds, hypoactive bowel sounds, mass, Pollack's sign, organolmegaly, rebound, rigid, tenderness, other Extremities exam: PRESENT: pedal edema, +2 edema Neurological exam: PRESENT: alert, awake, oriented to person, oriented to place , oriented to time, oriented to situation, reflexes normal, CN II-XII grossly intact. ABSENT: altered, abnormal gait, ataxia, motor sensory deficit, normal gait, aphasic, other Psychiatric exam: PRESENT: appropriate affect, normal mood Skin exam: PRESENT: intact, normal color, warm Results Laboratory Results: 08/08/17 05:44 08/08/17 05:44 08/08/17 08/08/17 05:44 05:44 WBC 12.1 H RBC 4.75 Hgb 15.2 Hct 43.8 MCV 92 MCH 32.0 MCHC 34.7 RDW 14.4 H Plt Count 160 Sodium 139.7 Potassium 3.4 L Chloride 96 L Carbon Dioxide 29 Anion Gap 15 BUN 30 H Creatinine 0.97 Est GFR ( Amer) > 60 Est GFR (Non-Af Amer) > 60 Glucose 100 Calcium 9.0 08/06/17 08/06/17 08/06/17 21:34 21:34 21:34 Creatine Kinase < 20 L CK-MB (CK-2) 0.95 Troponin I 0.013 NT-Pro-B Natriuret Pep 79633 H 08/07/17 08/07/17 08/07/17 03:32 03:32 09:52 Creatine Kinase < 20 L < 20 L CK-MB (CK-2) 0.66 Troponin I 0.013 NT-Pro-B Natriuret Pep 08/07/17 09:52 Creatine Kinase CK-MB (CK-2) 0.72 Troponin I < 0.012 NT-Pro-B Natriuret Pep Impressions: Chest X-Ray 08/06/17 13:30 IMPRESSION: Trace left pleural effusion with left basilar airspace disease atelectasis versus pneumonia. Stable cardiomegaly. Dual lead pacemaker Chest/Abdomen CTA 08/06/17 16:57 IMPRESSION: NO PULMONARY EMBOLI. SMALL BILATERAL PLEURAL EFFUSIONS AND TRACE PERICARDIAL EFFUSION. CORONARY ARTERY DISEASE. Status: Image reviewed by me Assessment & Plan - Diagnosis (1) Acute congestive heart failure Qualifiers: Congestive heart failure type: systolic Qualified Code(s): I50.21 - Acute systolic (congestive) heart failure Is this a current diagnosis for this admission?: Yes Plan: Acute systolic heart failure. Clinically volume overloaded with lower extremity edema. NT-Pro-BNP 36637. Echocardiogram with LVEF 35%. Great to/ fall diastolic dysfunction noted apical wall akinesis. Mild pulmonary hypertension with RVSP 30-[address] with no PE. Small bilateral pleural effusion and trace pericardial effusion noted. Continue IV Lasix 40 mg twice daily, metoprolol, lisinopril. Follow up results of MMPI/ischemic cardiac workup. Cardiology input noted (2) Chest pain Qualifiers: Chest pain type: precordial pain Qualified Code(s): R07.2 - Precordial pain Is this a current diagnosis for this admission?: Yes Plan: Chest pain atypical chest pain, in a patient with CAD per CT scan, resolved. EKG with ventricular paced rhythm. Serial TnI wnl. Maintain on aspirin, sublingual nitroglycerin as needed. Stress MPI pending (3) A-fib Qualifiers: Atrial fibrillation type: chronic Qualified Code(s): I48.2 - Chronic atrial fibrillation Is this a current diagnosis for this admission?: Yes Plan: Permanent atrial fibrillation status post ablation, status post PPM. Home flecainide is continued due to reduced LVEF per cardiology. Continue home metoprolol and anticoagulation with home apixaban. (4) HLD (hyperlipidemia) Qualifiers: Hyperlipidemia type: unspecified Qualified Code(s): E78.5 - Hyperlipidemia , unspecified Is this a current diagnosis for this admission?: Yes Plan: Chronic, stable. Continue home Simvastatin (5) HTN (hypertension) Qualifiers: Hypertension type: essential hypertension Qualified Code(s): I10 - Essential (primary) hypertension Is this a current diagnosis for this admission?: Yes Plan: Hypertension, essential, blood pressure at goal on home metoprolol (6) COLBY (acute kidney injury) Is this a current diagnosis for this admission?: Yes Plan: COLBY, nonoliguric, likely due to reduced cardiac output from CHF. Improving with diuresis: Cr 0.9 [1.3]. Continue to monitor (7) Leukocytosis Qualifiers: Leukocytosis type: unspecified Qualified Code(s): D72.829 - Elevated white blood cell count, unspecified Is this a current diagnosis for this admission?: Yes Plan: Leukocytosis, WBC 12.1 [19.1]. Patient is afebrile. Blood cultures negative. Avoid antibiotics at this time (8) Hypokalemia Is this a current diagnosis for this admission?: No Plan: Replete and recheck (9) DVT prophylaxis Is this a current diagnosis for this admission?: Yes Plan: Patient on apixaban - Time Time Spent with patient: 25-34 minutes Medications reviewed and adjusted accordingly: Yes Anticipated discharge: Home - Inpatient Certification Based on my medical assessment, after consideration of the patient's comorbidities, presenting symptoms, or acuity I expect that the services needed warrant INPATIENT care.: Yes Medical Necessity: Need Close Monitoring Due to Risk of Patient Decompensation, Risk of Complication if Not Cared For in Hospital, Risk of Diagnosis Which Will Require Inpatient Eval/Care/Monitoring - Plan Summary Plan Summary: Plan to discharge home in a.m. if stable [awaiting results of stress MPI], and if okay with sap business intelligence consultant
[2017-08-08] MEDS ORDERED: POTASSIUM CHLORIDE 10 MEQ TABLET.SA PO ONE (14:00)
--- NOTE | 2017-08-08 14:32 | DRAGON STRESS TEST REPORT ---
INTRAVENOUS LEXISCAN CARDIOLITE STRESS TEST USING SINGLE PHOTON EMMISION COMPUTERIZED TOMOGRAPHIC. DATE OF PROCEDURE: August 08, 2017 INDICATION : Congestive heart failure, abnormal echocardiogram CARDIAC RISK FACTORS: Hypertension, dyslipidemia RESTING EKG: Nonspecific T inversion anterior precordial lead STRESS EKG: No significant changes noted with LexiScan bolus REASON FOR TERMINATION: Protocol. PROCEDURE REPORT: Baseline heart rate 81 beats per minute with blood pressure of 126/81. Patient had no significant complaints. Heart rate at 2 minutes post bolus 93 with a blood pressure of 112/82. 3 minutes post bolus heart rate 92 with blood pressure of 108/79. No significant EKG changes were noted. Patient had no significant complaints during the procedure or postprocedure. Patient injected with Aminophyllin 75 mg at 3 minutes or later after Lexiscan bolus. CONCLUSIONS: Normal EKG and hemodynamic response to IV LexiScan. NUCLEAR DATA: At rest the patient was given 12.88 millicuries of technetium 99 sestamibi injected intravenously. As per protocol rest gated SPECT images were obtained. Subsequently the patient was given intravenous LexiScan at a dose of 0.4 mg in 5 mL intravenously, followed by flush with normal saline. Subsequently the stress dose of 37.6 millicuries of technetium 99 sestamibi was injected intravenously. As per protocol stress gated images were obtained. NUCLEAR INTERPRETATION: Both raw and processed data were used for interpretation. Visual, qualitative, computer-generated quantitative data was used. There was good myocardial uptake of technetium compound. Motion artifact and soft tissue attenuations were noted. Increased visceral uptake was noted. No definitive areas of transient perfusion defect noted. No definitive areas of fixed perfusion defect or scars noted. EKG gated imaging showed LV EF at 34 %, rest and stress gated EF similar visually, septal and apical hypokinesia noted. T. I D. ratio was 0.84. Lung heart ratio noted to be within normal limits 0.40. No significant extracardiac and abnormal radiotracer activities were noted. RV free wall uptake was noted to be WNL. IMPRESSION: Also refer to comments under nuclear interpretation. Also test results needs to be interpreted in the context of pretest probability. 1. There is no definitive scintigraphic evidence of LexiScan induced myocardial ischemia. 2. There is no definitive scintigraphic evidence of myocardial infarction/scar. 3. EKG gated imaging shows left ventricular ejection fraction of approximately 34 %, with septal and apical hypokinesia. 4. Clinical correlation requested as occasionally single vessel disease or balanced ischemia could be missed. In approximately 10% of the cases Lexiscan may not cause adequate vasodilatory stress. RECOMMENDATIONS: Aggressive risk factor modification, medical therapy. Clinical correlation with echocardiogram derived ejection fraction. Inability to exercise by itself can lead to increased cardiovascular event risks. Consider cardiology consultation and or follow-up if clinically indicated. I AM AVAILABLE FOR CARDIOLOGY CONSULTATION AND FOLLOWUP IF REQUESTED BY PMD Eloy Garza M.D., [employer] patient support assistant, Board certified in cardiovascular diseases, Nuclear cardiology, Echocardiography Cardiac CT and cardiac MRI Ph. [phone] ASIYA
--- NOTE | 2017-08-08 14:57 | PDOC PROGRESS REPORT ---
Subjective Progress Note for:: 08/08/17 Subjective:: Patient seems to be doing better with gradual improvement. Pt is denying any chest arm or neck discomfort. Patient denying any PND, orthopnea. Patient denied any sustained palpitations, dizziness, syncope, near syncope. Patient denying any fever chills. Patient denying any other significant discomfort. Patient is maintaining underlying flutter versus PAT with intermittent ventricular paced beats. Review of systems: Rest review of systems negative. Medications: Medications have been reviewed. Physical Exam Vital Signs: Temp Pulse Resp BP Pulse Ox 98.2 F 95 18 104/75 95 08/08/17 11:44 08/08/17 11:44 08/08/17 11:44 08/08/17 11:44 08/08/17 11:44 Intake & Output 08/07/17 08/08/17 08/09/17 06:59 06:59 06:59 Intake Total 1222 Output Total 600 650 Balance -600 572 Weight 82 kg 82 kg Exam: GENERAL: well-nourished and in no acute distress. Alert and oriented x3 HEAD: Atraumatic, normocephalic. EYES: Pupils equal round and reactive to light, extraocular movements intact, sclera anicteric, conjunctiva are normal. ENT: TMs normal, nares patent, oropharynx clear without exudates. Moist mucous membranes. No oral ulcerations or bleeding gums noted NECK: supple without lymphadenopathy. Trachea is central. No cervical or axillary lymphadenopathy noted. Carotids are 2+, JVD WNL LUNGS: Respiration seems nonlabored, no significant accessory muscle action noted. Breath sounds clear to auscultation bilaterally and equal noted. No wheezes rales or rhonchi noted. No significant dullness noted on percussion. Lung sounds are much improved. CHEST: Palpation of the chest wall shows no significant chest wall tenderness. No other significant abnormalities noted. 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 ABDOMEN: Soft, no significant tenderness appreciated, normoactive bowel sounds. No guarding, no rebound. No rigidity noted . No masses appreciated. EXTREMITIES: Pedal pulses are 1-2+, no calf tenderness noted. No clubbing or cyanosis. 1+ pedal edema noted NEUROLOGICAL: Focused neurological exam showed no significant neurologic deficit. Normal speech, no focal weakness appreciated. PSYCH: Normal mood, normal affect. Judgment and insight within normal limits. SKIN: No significant ecchymosis, rash, ulcerations or signs of pruritus noted. MUSCULOSKELETAL EXAM: No significant joint swelling noted. Results Laboratory Results: 08/08/17 05:44 08/08/17 05:44 08/08/17 08/08/17 05:44 05:44 WBC 12.1 H RBC 4.75 Hgb 15.2 Hct 43.8 MCV 92 MCH 32.0 MCHC 34.7 RDW 14.4 H Plt Count 160 Sodium 139.7 Potassium 3.4 L Chloride 96 L Carbon Dioxide 29 Anion Gap 15 BUN 30 H Creatinine 0.97 Est GFR ( Amer) > 60 Est GFR (Non-Af Amer) > 60 Glucose 100 Calcium 9.0 08/06/17 08/06/17 08/06/17 21:34 21:34 21:34 Creatine Kinase < 20 L CK-MB (CK-2) 0.95 Troponin I 0.013 NT-Pro-B Natriuret Pep 03160 H 08/07/17 08/07/17 08/07/17 03:32 03:32 09:52 Creatine Kinase < 20 L < 20 L CK-MB (CK-2) 0.66 Troponin I 0.013 NT-Pro-B Natriuret Pep 08/07/17 09:52 Creatine Kinase CK-MB (CK-2) 0.72 Troponin I < 0.012 NT-Pro-B Natriuret Pep EKG Comments: Atrial flutter fibrillation with controlled ventricular response and intermittent ventricular paced beats Impressions: Chest X-Ray 08/06/17 13:30 IMPRESSION: Trace left pleural effusion with left basilar airspace disease atelectasis versus pneumonia. Stable cardiomegaly. Dual lead pacemaker Chest/Abdomen CTA 08/06/17 16:57 IMPRESSION: NO PULMONARY EMBOLI. SMALL BILATERAL PLEURAL EFFUSIONS AND TRACE PERICARDIAL EFFUSION. CORONARY ARTERY DISEASE. Assessment & Plan - Diagnosis (1) Acute congestive heart failure Qualifiers: Congestive heart failure type: systolic Qualified Code(s): I50.21 - Acute systolic (congestive) heart failure Is this a current diagnosis for this admission?: Yes (2) Chest pain Qualifiers: Chest pain type: precordial pain Qualified Code(s): R07.2 - Precordial pain Is this a current diagnosis for this admission?: Yes (3) Coronary artery disease Qualifiers: Coronary Disease-Associated Artery/Lesion type: beaver artery [place] vs. transplanted heart: beaver heart Associated angina: with stable angina Qualified Code(s): I25.118 - Atherosclerotic heart disease of beaver coronary artery with other forms of angina pectoris Is this a current diagnosis for this admission?: Yes (4) HLD (hyperlipidemia) Qualifiers: Hyperlipidemia type: unspecified Qualified Code(s): E78.5 - Hyperlipidemia , unspecified Is this a current diagnosis for this admission?: Yes (5) HTN (hypertension) Qualifiers: Hypertension type: essential hypertension Qualified Code(s): I10 - Essential (primary) hypertension Is this a current diagnosis for this admission?: Yes (6) Pericardial effusion Is this a current diagnosis for this admission?: Yes - Notes Notes: Acute systolic heart failure: This is most likely related to systolic dysfunction based on echocardiogram. Patient's medical management is been optimized. Chest pain: Atypical and was evaluated by a nuclear stress test. This was negative for any definitive evidence of ischemia. EKG gated imaging showed EF of 34% with septal and apical hypokinesia. Coronary artery disease: Patient noted to have coronary calcification. Recommend aspirin, statins, beta-aixa, JIMMIE inhibitor/ARB therapy. Hypertension: Blood pressure goal should be 135/85 or less in patients with CHF and CAD. Pericardial effusion: It was noted to be a small by echocardiogram. No evidence of tamponade. Mitral regurgitation: Mitral regurgitation was noted. Currently stable. Atrial flutter fibrillation: Patient will benefit from a sleep study. On exam of his oral cavity, patient does have Mallampati class IV and slightly receding chin. This was explained to the patient. Patient could see me for a portable sleep study. - Time Time Spent with patient: Approximately 45 minutes total spent with the patient. 2D echocardiogram and nuclear stress test results were discussed. Patient was seen multiple times. In the morning nuclear stress test procedure, risks benefits, alternatives were discussed. Patient seen during the stress test. Patient also seen after stress test when results were discussed with the patient in detail. Patient's questions were answered. Nuclear stress test results were discussed with the patient. Patient was informed that no definitive evidence of pharmacologic stress-induced ischemia noted. No definite fixed defects were noted. Patient informed that occasionally significant single vessel disease or balanced ischemia could be missed. However based on the current study results, would recommend aggressive risk factor modification and medical therapy. It may also be worthwhile to consider evaluation or empiric management of other causes of chest pain. Should no other cause be found and if persistent in having chest pain, then cardiac catheterization should be considered. Right now, recommendations are for aggressive risk factor modification and medical management. Time with patient: Greater than 35 minutes - CODE STATUS was discussed, patient remains full code. Surrogate decision-maker unchanged. Multiple medical problems were addressed. More than 50% of the time spent coordinating care, discussing management plans with involved caregivers. Management plans discussed with involved personnels. Medical decision making was of moderate to high complexity, patient's has multiple comorbidities. Medications reviewed and adjusted accordingly: Yes
[2017-08-08 15:44] VITALS: BP 133/84
--- NOTE | 2017-08-08 15:44 | PDOC DISCHARGE SUMMARY ---
General - Admit/Disc Date/PCP Admission Date/Primary Care Provider: 08/06/17 20:20 JOSE SESAY, Discharge Date: 08/08/17 - Discharge Diagnosis (1) Acute congestive heart failure Is this a current diagnosis for this admission?: Yes (2) Chest pain Is this a current diagnosis for this admission?: Yes (3) A-fib Is this a current diagnosis for this admission?: Yes (4) HLD (hyperlipidemia) Is this a current diagnosis for this admission?: Yes (5) HTN (hypertension) Is this a current diagnosis for this admission?: Yes (6) COLBY (acute kidney injury) Is this a current diagnosis for this admission?: Yes (7) Leukocytosis Is this a current diagnosis for this admission?: Yes (8) Hypokalemia Is this a current diagnosis for this admission?: No - Additional Information Resuscitation Status: Full Code Discharge Activity: Activity As Tolerated Home Medications: Apixaban [Eliquis 5 mg Tablet] 5 mg PO Q12 08/06/17 Metoprolol Succinate [Toprol Xl 50 mg Tab.sr] 75 mg PO DAILY 08/06/17 Aspirin 81 mg PO DAILY #90 tab.chew 08/08/17 Atorvastatin Calcium 40 mg PO DAILY #90 tablet 08/08/17 Digoxin 125 mcg PO DAILY #90 tablet 08/08/17 Furosemide [Lasix 40 mg Tablet] 40 mg PO QAM #30 tablet 08/08/17 Nitroglycerin [Nitrostat 0.4 mg (1/150 Gr) Tabs 25/Bottle] 1 tab SL Q5MP PRN # 30 bottle 08/08/17 Sacubitril/Valsartan [Entresto 24 mg/26 mg Tablet] 1 tab PO Q12 #90 tablet 08/08 History of Present Illness Patient complains of: Atypical chest pain and shortness of breath History of Present Illness: AUSTYN WEAVER is a 77 year old male with history of atrial fibrillation status post permanent pacemaker placement, hypertension, dyslipidemia who resented to the hospital with chest pain. Additionally, he admitted to having lower extremity edema and increasing shortness of breath with exertion. Chest CT scan on admission did not reveal any PE. Echocardiogram done on admission showed a reduced LVEF of 35%, with apical as well as distal mid septal wall akinesis. Serial cardiac enzymes are negative. The patient improved significantly with diuresis using IV furosemide. He underwent a Lexiscan stress Cardiolite with Dr. Garza as part of his ischemic workup to date. There was no evidence of reversible ischemia. On flecainide was discontinued due to reduced LVEF per cardiology. Patient has been started on oral furosemide, as well as Entresto per cardiology. He will follow-up with cardiology within 1 week of discharge Physical Exam Vital Signs: Temp Pulse Resp BP Pulse Ox 98.2 F 95 18 104/75 95 08/08/17 11:44 08/08/17 11:44 08/08/17 11:44 08/08/17 11:44 08/08/17 11:44 Intake & Output 08/07/17 08/08/17 08/09/17 06:59 06:59 06:59 Intake Total 1222 Output Total 600 650 Balance -600 572 Weight 82 kg 82 kg General appearance: PRESENT: no acute distress, cooperative, well-developed Head exam: PRESENT: atraumatic, normocephalic Eye exam: PRESENT: conjunctiva pink, EOMI Respiratory exam: PRESENT: clear to auscultation kaleb, unlabored. ABSENT: accessory muscle use, chest wall tenderness, crackles, decreased breath sounds, prolonged expiratory phas, rales, retraction, rhonchi, stridor, symmetrical, tachypnea, wheezes, other Cardiovascular exam: PRESENT: RRR, +S1, +S2. ABSENT: bradycardia, clicks, diastolic murmur, gallop, irregular rhythm, rubs, systolic murmur, tachycardia, other Pulses: PRESENT: +1 pedal pulses bilateral Neurological exam: PRESENT: alert, awake, oriented to person, oriented to place , oriented to time, oriented to situation, reflexes normal, normal gait Psychiatric exam: PRESENT: appropriate affect, normal mood Results Laboratory Results: 08/08/17 05:44 08/08/17 05:44 08/08/17 08/08/17 05:44 05:44 WBC 12.1 H RBC 4.75 Hgb 15.2 Hct 43.8 MCV 92 MCH 32.0 MCHC 34.7 RDW 14.4 H Plt Count 160 Sodium 139.7 Potassium 3.4 L Chloride 96 L Carbon Dioxide 29 Anion Gap 15 BUN 30 H Creatinine 0.97 Est GFR ( Amer) > 60 Est GFR (Non-Af Amer) > 60 Glucose 100 Calcium 9.0 08/06/17 08/06/17 08/06/17 21:34 21:34 21:34 Creatine Kinase < 20 L CK-MB (CK-2) 0.95 Troponin I 0.013 NT-Pro-B Natriuret Pep 39478 H 08/07/17 08/07/17 08/07/17 03:32 03:32 09:52 Creatine Kinase < 20 L < 20 L CK-MB (CK-2) 0.66 Troponin I 0.013 NT-Pro-B Natriuret Pep 08/07/17 09:52 Creatine Kinase CK-MB (CK-2) 0.72 Troponin I < 0.012 NT-Pro-B Natriuret Pep Impressions: Chest X-Ray 08/06/17 13:30 IMPRESSION: Trace left pleural effusion with left basilar airspace disease atelectasis versus pneumonia. Stable cardiomegaly. Dual lead pacemaker Chest/Abdomen CTA 08/06/17 16:57 IMPRESSION: NO PULMONARY EMBOLI. SMALL BILATERAL PLEURAL EFFUSIONS AND TRACE PERICARDIAL EFFUSION. CORONARY ARTERY DISEASE. Status: Image reviewed by me Qualifiers PATEINT BEING DISCHARGED WITH ANY OF THE FOLLOWING DIAGNOSIS?: Heart Failure AR Pt being discharged on Aspirin therapy?: Yes AR Pt being discharged on Statins?: Yes HF Pt being discharged on ACEI for LVEF less than 40%?: Yes HF Pt being discharged on ARBS for LVEF less than 40%?: Yes HF Pt with Afib discharged with Warfarin?: Yes HF Pt discharged on evidence-based Beta Mandy:: Yes Plan Time Spent: Greater than 30 Minutes
[2017-08-08] MEDS ORDERED: METOPROLOL SUCCINATE 50 MG TAB.SR.24H PO SCH (22:00)
--- NOTE | 2017-08-09 09:04 | EKG REPORT ---
SEVERITY:- ABNORMAL ECG - A FIB FLUTTER PROBABLE LEFT ATRIAL ABNORMALITY NONSPECIFIC INTRAVENTRICULAR CONDUCTION DELAY LVH WITH SECONDARY REPOLARIZATION ABNORMALITY PROBABLE INFERIOR INFARCT, AGE INDETERMINATE : Confirmed by: Eloy Garza 09-Aug-2017 09:03:17
== END 2017-08-08 16:18 | disposition home or self-care (01) | DRG 292 ==
LOC: ER 13:11 → EH 19:43 → OBSVTOIN 20:20 → 4S 21:20
PROVIDERS: ADMIT Family Medicine; ATTEND Family Medicine
DX: I11.0 Hypertensive heart disease with heart failure (principal); J90 Pleural effusion, not elsewhere classified; I31.3 Pericardial effusion (noninflammatory); N17.9 Acute kidney failure, unspecified; I50.21 Acute systolic (congestive) heart failure; I48.2 Chronic atrial fibrillation; I34.0 Nonrheumatic mitral (valve) insufficiency; E78.5 Hyperlipidemia, unspecified; I25.118 Atherosclerotic heart disease of native coronary artery with other forms of angina pectoris; E87.6 Hypokalemia; K59.00 Constipation, unspecified; Z87.891 Personal history of nicotine dependence; Z95.0 Presence of cardiac pacemaker; Z79.01 Long term (current) use of anticoagulants
CPT/HCPCS: 36415; 71010; 71275; 78452; 80048; 80053; 80061; 81001; 82550; 82553; 83735; 83880; 84443; 84484; 85025; 85027; 85379; 87040; 87804; 93005; 93010; 93017; 93306; 96360; 99285; A9500; J0280; J1940; J2785; J3490; J7030; Q9969

== ENCOUNTER 2017-08-17 08:08 | Day surgery (SDC) | payer MEDICARE, OTHER ==
[~2017-08-17 08:08] MED LIST: BUPIVACAINE HCL 0.75% INJ/PF (7.5 MG/1 ML) 10 ML SDV OD PRN; KETOROLAC TROMETHAMINE 0.45% 4 DROP/0.4 ML DROPERETTE OD PRN; LIDOCAINE 4% INJ/PF (40 MG/ML) 5 ML AMPUL OD PRN
[2017-08-17] MEDS ORDERED: EPINEPHRINE INJ/PF 1 MG/1 ML AMPULE ONE (08:32)
[2017-08-17] MEDS ORDERED: CHONDR SU A NA/HYALUR INTRAOC KIT (SURGICARE) ONE (08:32)
[2017-08-17] MEDS: TETRACAINE HCL 0.5% OPH SOLN 0.6 ML DROPERETTE OD PRN ×2 (08:33→09:00)
[2017-08-17] MEDS: TROPICAMIDE 1% OPH SOLN 3 ML OD PRN ×3 (08:34→09:00)
[2017-08-17] MEDS: BESIFLOXACIN HCL 0.6% OPH SUSP 5 ML BOTTLE OD PRN ×3 (08:34→09:45)
[2017-08-17] MEDS: CYCLOPENTOLATE 0.2%/PHENYLEPHRINE 1% OPH SOLN 2 ML OD PRN ×3 (08:34→09:00)
[2017-08-17] MEDS ORDERED: MIDAZOLAM 2 MG/2 ML INJ ONE (09:56)
[2017-08-17] MEDS ORDERED: LIDOCAINE 1% INJ-PF (10 MG/ML) 30 ML SDV ONE (10:07)
--- NOTE | 2017-08-17 10:33 | DISCHARGE SUMMARY E ---
Discharge Summary NAME: AUSTYN WEAVER : 1940 AGE: 77Y ADMITTED: 08/17/2017 DISCHARGED: FINAL DIAGNOSIS: CATARACT, RIGHT EYE. HOSPITAL COURSE: The patient is a 77-year-old gentleman who underwent uneventful cataract extraction with intraocular lens implant, right eye, on 08/17/2017. He will be discharged to home. He was instructed to resume preoperative medications, take Tylenol as needed for discomfort, keep his eye shielded, to use Besivance, Durezol, and Ilevro at 3 p.m. and 8 p.m., to follow up in my office in 1 day. DICTATING PHYSICIAN: PERRY MI M.D. [id number] PHY#: [id number] ID: [id number] JOB#: [id number] ACCT: [id number] cc:PERRY MI M.D. >
--- NOTE | 2017-08-17 10:33 | [facility] OPERATIVE REPORT E ---
[facility] Operative Report NAME: AUSTYN WEAVER AGE: 77Y DATE OF SURGERY: 08/17/2017 ROOM: PREOPERATIVE DIAGNOSIS: CATARACT, RIGHT EYE. POSTOPERATIVE DIAGNOSIS: CATARACT, RIGHT EYE. PROCEDURE PERFORMED: Phacoemulsification with posterior chamber intraocular lens, right eye. SURGEON: PERRY MI M.D. ANESTHESIA: Topical with MAC. INDICATIONS FOR SURGERY: Difficulty reading road signs and glare with night driving. Best corrected visual acuity 20/50. DESCRIPTION OF PROCEDURE: The patient was brought to the Operating Room and placed on the operative table. Following tetracaine drops, topical anesthesia was administered. This consisted of instrument wipe pledgets soaked in a solution of 4% Xylocaine mixed with 0.75% Marcaine in a 1:2 ratio. A 2 x 1 cm pledget was placed in the superior fornix. A 1 x 1 cm pledget was placed in the inferior fornix. The eye was patched shut for 5 minutes. The patch was removed. The eye was sterilely prepped and draped in the usual manner. Lid speculum was placed in the eye. The pledgets were removed. The 4-0 black silk sutures were placed around the superior and the inferior rectus muscles to be used as traction. A conjunctival peritomy was made at the 10 o'clock position. Hemostasis was obtained with bipolar cautery. A posterior limbal groove was created using a crescent knife and dissected anteriorly towards the cornea. A sharp point blade was used to create a paracentesis site at the 2 o'clock position. A 2.4 mm keratome was used to enter the anterior chamber through the groove. Viscoelastic was injected into the anterior chamber. An anterior capsulotomy was performed using Utrata forceps in a capsulorrhexis fashion. Hydrodissection and hydrodelineation were performed. Phacoemulsification was performed in xtawfq-dml-rspmooi technique. A total of 52 seconds phaco time was used. Following this, the I/A unit was used to remove residual cortex. Viscoelastic was injected into the capsular bag. Intraocular lens model SN60WF, 12.0 diopters, serial number [id number] was placed in the capsular bag. The I/A unit was used to remove residual viscoelastic. The wound was seen to be watertight under high and low pressure, and no sutures were placed. The intraocular lens was well centered. The pressure was adjusted in the eye to normal pressure. The 4-0 black silk sutures and lid speculum were removed. The eye was shielded after Besivance drops were placed. The patient tolerated the procedure well and was sent to the Recovery Room in good condition. DICTATING PHYSICIAN: PERRY MI M.D. [id number] PHY#: [id number] ID: [id number] JOB#: [id number] ACCT: [id number] cc:PERRY MI M.D. >
--- NOTE | 2017-08-17 13:30 | EKG REPORT ---
SEVERITY:- ABNORMAL ECG - ATRIAL FIBRILLATION PROBABLE LVH WITH SECONDARY REPOL ABNRM : Confirmed by: Herbert Spencer MD 17-Aug-2017 13:30:38
== END 2017-08-17 11:08 | disposition home or self-care (01) ==
LOC: SC 08:08
PROVIDERS: ATTEND Ophthalmology
PROC: 08RJ3JZ Replacement of Right Lens with Synthetic Substitute, Percutaneous Approach (ICD-10-PCS; principal; 2017-08-17 09:30)
DX: H25.813 Combined forms of age-related cataract, bilateral (principal); H04.123 Dry eye syndrome of bilateral lacrimal glands; H43.813 Vitreous degeneration, bilateral; H53.122 Transient visual loss, left eye; I10 Essential (primary) hypertension; I48.91 Unspecified atrial fibrillation; E78.00 Pure hypercholesterolemia, unspecified; Z79.899 Other long term (current) drug therapy; Z79.01 Long term (current) use of anticoagulants
CPT/HCPCS: 93005; 93010; 66984; V2632; J2250; J3490 ×4; A9270; J0171; 142

== ENCOUNTER 2017-09-17 07:39 | Day surgery (SDC) | payer MEDICARE, OTHER ==
[~2017-09-17 07:39] MED LIST changes: -BUPIVACAINE HCL 0.75% INJ/PF (7.5 MG/1 ML) 10 ML SDV OD PRN; +BUPIVACAINE HCL 0.75% INJ/PF (7.5 MG/1 ML) 10 ML SDV OS PRN; -KETOROLAC TROMETHAMINE 0.45% 4 DROP/0.4 ML DROPERETTE OD PRN; +KETOROLAC TROMETHAMINE 0.45% 4 DROP/0.4 ML DROPERETTE OS PRN; -LIDOCAINE 4% INJ/PF (40 MG/ML) 5 ML AMPUL OD PRN; +LIDOCAINE 4% INJ/PF (40 MG/ML) 5 ML AMPUL OS PRN
[2017-09-17] MEDS ORDERED: EPINEPHRINE INJ/PF 1 MG/1 ML AMPULE ONE (08:29)
[2017-09-17] MEDS ORDERED: CHONDR SU A NA/HYALUR INTRAOC KIT (SURGICARE) ONE (08:29)
[2017-09-17] MEDS: BESIFLOXACIN HCL 0.6% OPH SUSP 5 ML BOTTLE OS PRN ×3 (08:38→09:38)
[2017-09-17] MEDS: TROPICAMIDE 1% OPH SOLN 3 ML OS PRN ×3 (08:38→08:58)
[2017-09-17] MEDS: CYCLOPENTOLATE 0.2%/PHENYLEPHRINE 1% OPH SOLN 2 ML OS PRN ×3 (08:38→08:58)
[2017-09-17] MEDS: TETRACAINE HCL 0.5% OPH SOLN 0.6 ML DROPERETTE OS PRN ×2 (08:39→08:58)
[2017-09-17] MEDS ORDERED: MIDAZOLAM 2 MG/2 ML INJ ONE ×2 (08:57→08:58)
[2017-09-17] MEDS ORDERED: LIDOCAINE 1% INJ-PF (10 MG/ML) 30 ML SDV ONE (09:19)
--- NOTE | 2017-09-17 09:48 | [facility] DISCHARGE SUMMARY E ---
[facility] Discharge Summary NAME: AUSTYN WEAVER AGE: 77Y ADMITTED: 09/17/2017 DISCHARGED: 09/17/2017 HOSPITAL COURSE: The patient is a 77-year-old gentleman who underwent uneventful cataract extraction with intraocular lens implant, left eye, on 09/17/2017. He will be discharged to home. He is instructed to resume preoperative medications, take Tylenol as needed for discomfort, keep his eye shielded, to use Besivance, Durezol, and Ilevro at 3 p.m. and 8 p.m., and to follow up in my office today at 3:15 p.m. DICTATING PHYSICIAN: PERRY MI M.D. [id number] PHY#: [id number] ID: [id number] JOB#: [id number] ACCT: [id number] cc:PERRY MI M.D. >
--- NOTE | 2017-09-17 09:48 | [facility] OPERATIVE REPORT E ---
[facility] Operative Report NAME: AUSTYN WEAVER AGE: 77Y DATE OF SURGERY: 09/17/2017 ROOM: PREOPERATIVE DIAGNOSIS: Cataract, left eye. POSTOPERATIVE DIAGNOSIS: Cataract, left eye. PROCEDURE PERFORMED: Phacoemulsification with posterior chamber intraocular lens, left eye. SURGEON: PERRY MI M.D. ANESTHESIA: Topical with MAC. INDICATIONS FOR SURGERY: Imbalance after cataract surgery in the right eye. Best corrected visual acuity 20/50. PROCEDURE: The patient was brought to the Operating Room and placed on the operative table. Following tetracaine drops, topical anesthesia was administered. This consisted of instrument wipe pledgets soaked in a solution of 4% Xylocaine mixed with 0.75% Marcaine in a 1:2 ratio. A 2 x 1 cm pledget was placed in the superior fornix. A 1 x 1 cm pledget was placed in the inferior fornix. The eye was patched shut for 5 minutes. The patch was removed. The eye was sterilely prepped and draped in the usual manner. Lid speculum was placed in the eye. The pledgets were removed. 4-0 black silk sutures were placed around the superior and the inferior rectus muscles to be used as traction. A conjunctival peritomy was made at the 10 o'clock position. Hemostasis was obtained with bipolar cautery. A posterior limbal groove was created using a crescent knife and dissected anteriorly towards the cornea. A sharp point blade was used to create a paracentesis site at the 2 o'clock position. A 2.4 mm keratome was used to enter the anterior chamber through the groove. Viscoelastic was injected into the anterior chamber. An anterior capsulotomy was performed using Utrata forceps in a capsulorrhexis fashion. Hydrodissection and hydrodelineation were performed. Phacoemulsification was performed in qqaqyu-gaj-sporban technique. A total of 56 seconds phaco time was used. Following this, the I/A unit was used to remove residual cortex. Viscoelastic was injected into the capsular bag. Intraocular lens model SN60WF, 12.5 diopters, serial number [id number] was placed in the capsular bag. The I/A unit was used to remove residual viscoelastic. The wound was seen to be watertight under high and low pressure, and no sutures were placed. The intraocular lens was well centered. The pressure was adjusted in the eye to normal pressure. The 4-0 black silk sutures and lid speculum were removed. The eye was shielded after Besivance drops were placed. The patient tolerated the procedure well and was sent to the Recovery Room in good condition. DICTATING PHYSICIAN: PERRY MI M.D. [id number] PHY#: [id number] ID: [id number] JOB#: [id number] ACCT: [id number] cc:PERRY MI M.D. >
== END 2017-09-17 10:48 | disposition home or self-care (01) ==
LOC: SC 07:39
PROVIDERS: ATTEND Ophthalmology
PROC: 08RK3JZ Replacement of Left Lens with Synthetic Substitute, Percutaneous Approach (ICD-10-PCS; principal; 2017-09-17 08:30)
DX: H25.812 Combined forms of age-related cataract, left eye (principal); Z96.1 Presence of intraocular lens; I10 Essential (primary) hypertension; R01.1 Cardiac murmur, unspecified; I49.9 Cardiac arrhythmia, unspecified; Z79.01 Long term (current) use of anticoagulants; Z95.0 Presence of cardiac pacemaker
CPT/HCPCS: 66984; V2632; J2250; J3490 ×4; A9270; J0171; 142